=== PATIENT | female | born 1990 | race Caucasian/White ===

== ENCOUNTER 2019-05-20 10:26 | Emergency (ER) | payer OTHER, MEDICAID ==
[~2019-05-20] VITALS: Ht 160 cm; Wt 77.1 kg
[~2019-05-20 10:26] MED LIST: METFORMIN HCL500 MG PO; NORCO 5-325 TA1 EACH PO
[2019-05-20 10:54] LABS: URINE BILIRUBIN NEGATIVE (Negative); URINE BLOOD NEGATIVE (Negative); URINE CLARITY CLEAR; URINE COLOR YELLOW; URINE GLUCOSE-RANDOM NEGATIVE (Negative); URINE KETONES NEGATIVE (Negative); URINE LEUKOCYTES-REFLEX NEGATIVE (Negative); URINE NITRITE-REFLEX NEGATIVE (Negative); URINE PROTEIN 1+ (Negative); URINE SPECIFIC GRAVITY >= 1.030 (1.005-1.030); URINE UROBILINOGEN 0.2 E.U./dl (0.2-1.0)
[2019-05-20 11:56] VITALS: BP 136/84
== END 2019-05-20 11:57 | disposition home or self-care (01) ==
LOC: M.ERS 10:26
PROVIDERS: Physician Assistant
DX: Z32.01 Encounter for pregnancy test, result positive (principal); O26.891 Other specified pregnancy related conditions, first trimester; R80.9 Proteinuria, unspecified; Z3A.08 8 weeks gestation of pregnancy; Z88.2 Allergy status to sulfonamides

== ENCOUNTER 2020-01-05 20:30 | Emergency (ER) | payer OTHER, MEDICAID ==
[~2020-01-05] VITALS: Ht 160 cm; Wt 99.8 kg
[2020-01-05 21:22] LABS: URINE BILIRUBIN NEGATIVE (Negative); URINE BLOOD 2+ (Negative); URINE CLARITY SL CLOUDY; URINE COLOR YELLOW; URINE GLUCOSE-RANDOM NEGATIVE (Negative); URINE KETONES NEGATIVE (Negative); URINE NITRITE-REFLEX NEGATIVE (Negative); URINE PROTEIN 2+ (Negative); URINE SPECIFIC GRAVITY >= 1.030 (1.005-1.030); URINE UROBILINOGEN 0.2 E.U./dl (0.2-1.0)
[2020-01-05 21:23] LABS: URINE LEUKOCYTES-REFLEX 2+ (Negative)
[2020-01-05 21:29] LABS: MUCUS 0-3 Light strn/LPF (None Seen); SQUAMOUS >10 Many /LPF (0-3); URINE RBC 3-10 Few /HPF (0-2)
[2020-01-05 21:30] LABS: BACTERIA-REFLEX 1-9 Few /HPF (None Seen); CRYSTALS None Seen /LPF (None Seen); HYALINE CASTS 0-3 Few /LPF (None Seen)
[2020-01-05 21:32] LABS: ABSOLUTE BASOPHILS 0.1 thou/uL (0.0-0.2); ABSOLUTE EOSINOPHILS 0.2 thou/uL (0.0-0.7); ABSOLUTE LYMPHOCYTES 2.2 thou/uL (0.8-5.3); ABSOLUTE MONOCYTES 0.6 thou/uL (0.0-1.2); ABSOLUTE NEUTROPHILS 7.2 thou/uL (1.6-8.1); EOSINOPHILS 1.6 %; HEMATOCRIT 35.9 % (37.0-47.0); HEMOGLOBIN 11.7 gm/dL (12.0-15.0); MCH 23.9 pg (26.0-34.0); MCHC 32.7 g/dL (28.0-37.0); MCV 73.2 fL (80.0-100.0); MPV 7.5 fl. (7.2-11.1); NUCLEATED RBCS 0 /100WBC; PLATELET COUNT* 428 thou/uL (150-400); POLYS 70.4 %; RBC 4.91 mil/uL (4.20-5.00); RDW-CV 16.8 % (10.5-14.5); WBC 10.3 thou/uL (4.0-11.0)
[2020-01-05 21:44] LABS: CALCIUM 8.6 mg/dL (8.5-10.1); CREATININE 0.8 mg/dL (0.6-1.3); POTASSIUM 3.5 mmol/L (3.5-5.1)
[2020-01-05 21:49] LABS: TOTAL PROTEIN 7.6 g/dL (6.4-8.2)
[2020-01-05 23:00] LABS: AMP/METHAMP POSITIVE (Negative); BARBITURATES Negative (Negative); BENZODIAZEPINES Negative (Negative); COCAINE Negative (Negative); METHADONE Negative (Negative); OPIATES Negative (Negative); PCP Negative (Negative); THC POSITIVE (Negative)
[2020-01-05 23:09] LABS: ACETAMINOPHEN < 2 ug/mL (10-30); SALICYLATE < 2.8 mg/dL (2.8-20.0)
--- NOTE | 2020-01-06 10:45 | EKG ---
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1990 Requested By: Sandra Richard Order Number: [id number] MD: Suleman Zhao Measurements Intervals [place] Rate: 105 P: 54 MD: 150 QRS: 39 QRSD: 84 T: 16 QT: 353 QTc: 467 Interpretive Statements Sinus tachycardia Borderline Q waves in inferior leads Borderline T abnormalities, anterior leads No previous ECG available for comparison Electronically Signed On 01-06-2020 10:44:48 CDT by Suleman Zhao [email or web address] <ELECTRONICALLY SIGNED> By: Suleman Zhao MD, [facility] 01/06/20 1044 28 28 Suleman Zhao MD, [facility] /EPI
[2020-01-07 07:22] VITALS: BP 136/84
== END 2020-01-07 07:24 | disposition still patient (30) ==
LOC: M.ERS 20:30
PROVIDERS: Emergency Medicine
DX: F15.10 Other stimulant abuse, uncomplicated (principal); R45.851 Suicidal ideations; Z20.828 Contact with and (suspected) exposure to other viral communicable diseases; E66.9 Obesity, unspecified; Z68.39 Body mass index [BMI] 39.0-39.9, adult; Z88.2 Allergy status to sulfonamides

== ENCOUNTER 2020-10-23 12:45 | Emergency (ER) | payer OTHER, MEDICAID ==
[~2020-10-23] VITALS: Ht 160 cm; Wt 108.9 kg
[2020-10-23] MEDS ORDERED: NAPROSYN500 MG PO (13:37)
[2020-10-23 13:44] VITALS: BP 115/54
== END 2020-10-23 13:45 | disposition home or self-care (01) ==
LOC: M.ERS 12:45
DX: S90.111A Contusion of right great toe without damage to nail, initial encounter (principal); E66.9 Obesity, unspecified; Z87.42 Personal history of other diseases of the female genital tract; Z68.41 Body mass index [BMI] 40.0-44.9, adult; Z88.2 Allergy status to sulfonamides; Y08.89XA Assault by other specified means, initial encounter; Y93.89 Activity, other specified; Y92.810 Car as the place of occurrence of the external cause; Y99.8 Other external cause status